=== PATIENT | female | born 1960 | race Asian ===

== ENCOUNTER 2023-11-15 13:02 | Emergency (ER) | payer MEDICAID ==
[~2023-11-15] VITALS: Ht 152.4 cm; Wt 59.0 kg
[~2023-11-15 13:02] MED LIST: AMLO10TA80 PO; ASPI-867 PO; ATOR10TA69 PO; LOSA50TA41 PO; METO-539 PO
[2023-11-15 13:10] VITALS: BP 132/68; PULSE 64; RESP 18; TEMP 98.6; O2SAT 98
[2023-11-15] MEDS ORDERED: NAPR-681 PO (16:34)
== END 2023-11-15 17:50 | disposition home or self-care (01) ==
LOC: ER 13:02
DX: S92.112A Displaced fracture of neck of left talus, initial encounter for closed fracture (principal); S93.492A Sprain of other ligament of left ankle, initial encounter; E78.00 Pure hypercholesterolemia, unspecified; I10 Essential (primary) hypertension; W18.39XA Other fall on same level, initial encounter; Y93.89 Activity, other specified; Y92.89 Other specified places as the place of occurrence of the external cause; Y99.8 Other external cause status
CPT/HCPCS: 73610; 73630; 99284; Z7610

== ENCOUNTER 2024-06-15 14:07 | Emergency (ER) | payer MEDICAID, MEDICARE ==
[~2024-06-15] VITALS: Ht 162.6 cm; Wt 85.0 kg
[~2024-06-15 14:07] MED LIST changes: +NAPR-681 PO
[2024-06-15 14:20] VITALS: BP 134/59; TEMP 36.7; O2SAT 98
[2024-06-15 14:30] VITALS: PULSE 88; RESP 20; O2SAT 98
[2024-06-15 15:36] LABS: BASOPHILS % 0.8 % (0.0-2.0); HEMATOCRIT. 39.4 % (36.0-48.0); HEMOGLOBIN. 13.4 g/dL (12.0-16.0); LYMPHOCYTES % 30.3 % (20.0-50.0); MEAN CORPUSCULAR HEMOGLOBIN 30.2 pg (28.0-32.0); MEAN CORPUSCULAR HGB CONC 34.1 g/dL (31.0-37.0); MEAN CORPUSCULAR VOLUME 88.7 fL (81.0-99.0); MEAN PLATELET VOLUME 9.7 fl (7.4-10.4); MONOCYTES % 7.8 % (2.0-8.0); NEUTROPHILS % 58.1 % (40.0-76.0); PLATELET 250 x1000/uL (130-400); RED BLOOD CELL COUNT 4.45 mill/uL (4.2-5.4); WHITE BLOOD COUNT 5.9 x1000/uL (4.5-11.0)
[2024-06-15 15:46] LABS: CHLORIDE 107 mEq/L (98-107); POTASSIUM 3.8 mEq/L (3.5-5.1); SODIUM 144 mEq/L (136-145)
[2024-06-15 15:47] LABS: CALCIUM 11.1 mg/dL (8.7-10.4); CARBON DIOXIDE 30 mEq/L (21-32)
[2024-06-15 15:52] LABS: CREATININE 0.5 mg/dL (0.6-1.0); GLUCOSE 96 mg/dL (70-105); TROPONIN I HIGH SENSITIVITY 4 ng/L (3.0-34); UREA NITROGEN BLOOD 15 mg/dL (9-23)
[2024-06-15 15:54] LABS: ALANINE AMINOTRANSFERASE 52 IU/L (10-49); ALBUMIN 4.6 g/dL (3.2-4.8); ASPARTATE AMINOTRANSFERASE 32 IU/L (<34); BILIRUBIN TOTAL 0.4 mg/dL (0.1-1.0); PROTEIN TOTAL 7.6 g/dL (6.0-8.3)
[2024-06-15] MEDS ORDERED: ATOR10TA69 PO (16:30)
[2024-06-15] MEDS ORDERED: METF-414 MT (16:30)
[2024-06-15] MEDS ORDERED: ASPI-867 PO (16:30)
[2024-06-15] MEDS ORDERED: LOSA50TA41 PO (16:30)
[2024-06-15] MEDS ORDERED: METO-385 MT (16:30)
[2024-06-15] MEDS ORDERED: AMLO10TA80 PO (16:30)
== END 2024-06-15 16:49 | disposition home or self-care (01) ==
LOC: ER 14:07
DX: I10 Essential (primary) hypertension (principal); Z76.0 Encounter for issue of repeat prescription; E11.9 Type 2 diabetes mellitus without complications; E78.00 Pure hypercholesterolemia, unspecified; Z79.82 Long term (current) use of aspirin; Z79.84 Long term (current) use of oral hypoglycemic drugs; Z79.899 Other long term (current) drug therapy
CPT/HCPCS: 36415; 80053; 84484; 85025; 93005; 99284